=== PATIENT | male | born 1985 | race Caucasian/White ===

== ENCOUNTER 2016-04-14 20:53 | Emergency (ER) | payer OTHER ==
[~2016-04-14] VITALS: Ht 177.8 cm; Wt 95.5 kg
[2016-04-14 20:58] VITALS: TEMP 100
[2016-04-14] MEDS ORDERED: CELEBREX 200MG200 MG PO (21:02)
[2016-04-14] MEDS ORDERED: CLEOCIN HCL300 MG PO (21:02)
[2016-04-14] MEDS ORDERED: PRINZIDE 12.5 M1 TA1 PO (21:02)
[2016-04-14] MEDS ORDERED: ZANTAC 150MG T150 MG PO (21:02)
[2016-04-14 21:57] LABS: HEMATOCRIT 41.3 % (42.0-52.0); HEMOGLOBIN 14.5 g/dl (13.5-18.0); MEAN CELL VOLUME 82 fl (80.0-100.0); MEAN CORPUSCULAR HEMOGLOBIN 29 pg (27.0-31.0); MEAN CORPUSCULAR HGB CONC 35 g/dl (33.0-37.0); MEAN PLATELET VOLUME 10.4 fl (7.4-10.4); PLATELET COUNT 253 K/mm3 (130-400); RED BLOOD COUNT 5.04 M/mm3 (4.20-5.60); REDCELL DISTRIBUTION WIDTH-CV 11.9 % (11.5-14.5); WHITE BLOOD COUNT 6.5 K/mm3 (4.8-10.8)
[2016-04-14 22:04] LABS: ADD PATHOLOGY DIFF REVIEW NO
[2016-04-14 22:08] LABS: ALBUMIN 4.1 gm/dL (3.5-5.0); BILIRUBIN,TOTAL 0.8 mg/dL (0.0-1.0); CALCIUM 9.1 mg/dL (8.4-10.2); CREATININE, serum 0.97 mg/dL (0.66-1.25); POTASSIUM 3.8 mmol/L (3.4-5.0); TOTAL PROTEIN 7.7 gm/dL (6.4-8.2)
[2016-04-14 22:30] LABS: BAND 17 % (0-10); BASOPHIL 1 % (0-2); NEUTROPHILS 33 % (42.0-75.2); PLATELET ESTIMATE NORMAL (NORMAL); TOTAL CELLS COUNTED 100
[2016-04-14] MEDS ORDERED: DIFLUCAN 100MG100 MG PO (22:41)
[2016-04-14] MEDS ORDERED: ZOVIRAX400 MG PO (22:41)
[2016-04-15 00:13] VITALS: BP 123/87; PULSE 91
== END 2016-04-15 00:13 | disposition home or self-care (01) ==
LOC: COL.ER 20:53
PROVIDERS: Emergency Medicine
DX: B00.2 Herpesviral gingivostomatitis and pharyngotonsillitis (principal); I10 Essential (primary) hypertension; K21.9 Gastro-esophageal reflux disease without esophagitis
CPT/HCPCS: J0133; J1450; J1885; J2765; J3010; J7030